=== PATIENT | male | born 1950 | race Caucasian/White ===

== ENCOUNTER → 2018-10-19 11:11 | Outpatient (CLI) | payer BC, SELFPAY ==
[2018-10-19 12:33] LABS: BUN Creatinine Ratio 21.1 (6-22); Blood Urea Nitrogen 19 mg/dL (9-20); Estimated Glomerular Filt Rate > 60.0 mL/min (>60)
== END ==
PROVIDERS: Visit Provider Ophthalmology
DX: G90.2 Horner's syndrome (principal)
CPT/HCPCS: 36415; 82565; 84520

== ENCOUNTER → 2018-10-28 07:37 | Outpatient (CLI) | payer BC, SELFPAY ==
--- NOTE | 2018-10-28 | DI.MRI.S_ITS ---
PROCEDURE: MR HEAD/BRAIN WO/W CON INDICATIONS: RONNIE'S SYNDROME TECHNIQUE: Noncontrast axial T1 spin echo, axial T2 fast spin echo, sagittal and axial FLAIR, coronal T2 fast spin echo, axial gradient echo, axial diffusion and ADC through the brain. After the administration of contrast, axial and coronal T1 spin echo with fat saturation through the brain. COMPARISON: None. FINDINGS: Image quality: Excellent. CSF spaces: Basal cisterns are patent. No extra-axial fluid collections. Ventricles are normal in size and shape. Brain: The hypothalamic region appears grossly unremarkable without abnormal enhancement. Trigeminal nerves appear grossly unremarkable, although on the right, there is a small vessel which courses adjacent to the right trigeminal nerve root just prior to entering Meckel's cave. This is an asymmetric appearance, although the actual clinical significance is unknown; recommend correlation to exam findings. The intracranial ICA flow-voids appear unremarkable. Grossly unremarkable appearance of the cavernous sinuses No midline shift. No intracranial bleeds or masses. No abnormal intracranial enhancement. There is cerebral volume loss for age. There is periventricular white matter chronic small vessel ischemic change. The brainstem appears normal. Diffusion-weighted images demonstrate no acute ischemic insults. No chronic ischemic insults. Normal intravascular flow voids are present. Skull and face: Calvarial marrow is normal in signal. Orbits appear normal. There are multiple right posterior scalp lesions measuring up to 1.6 x 1.0 cm on image 17 series 8 and up to 2.2 x 1.1 cm on image 18 series 8. These are heterogeneous in signal and relatively low in signal on T2-weighted images and demonstrate no definite enhancement. Additional large left frontal scalp lesion image 16 series 5, image 25 series 8. Sinuses: Sinuses and mastoids appear clear. IMPRESSION: Numerous heterogeneous skin and subcutaneous scalp mass lesions with minimal if any enhancement. Please correlate clinically to exclude neoplastic possibilities No intracranial mass lesion or abnormal enhancement identified. Small vessel coursing adjacent to the right cranial nerve V root which is asymmetric compared to the contralateral side although the actual clinical significance is unknown. Please correlate with exam findings. Dictated by: Mak Singleton M.D. on 10/28/2018 at 9:34 Approved by: Mak Singleton M.D. on 10/28/2018 at 10:02
--- NOTE | 2018-10-28 | DI.MRI.S_ITS ---
PROCEDURE: MR ANGIO NECK W CON INDICATIONS: RONNIE'S SYNDROME TECHNIQUE: Axial and sagittal TruFISP through the neck. Coronal dynamic MRA after the administration of contrast in the arterial and venous phases, with rotating 3-dimensional maximum intensity projection (MIP) reformats constructed from subtraction images. COMPARISON: [facility], MR, MR HEAD/BRAIN WO/W CON, 10/28/2018, 8:24. FINDINGS: Image quality: Excellent. Carotid system: Incidental note is made of a common origin of the right brachiocephalic artery and the left common carotid artery (bovine type arch). This is considered to be a developmental variant of no clinical consequence. The origins of the common carotid arteries appear normal. The calibers and courses of the common carotid arteries are likewise normal. The carotid bifurcations appear normal bilaterally. The internal carotid arteries are widely patent up to the [place]. Posterior circulation: The origins of the vertebral arteries are unremarkable. The more superior portions of the vertebral arteries demonstrate normal course and caliber. The right vertebral artery is dominant the left. Vertebral arteries join to form a normal appearing basilar artery. Miscellaneous: Subclavian arteries are patent throughout. Pre-contrast images through the neck demonstrate no soft tissue abnormalities. IMPRESSION: No significant abnormality of the arteries of the neck The right vertebral artery is dominant to the left, which is considered to be a normal developmental variant. Incidental note is made of: Bovine type aortic branching pattern Any quantitative measurements of stenosis were performed using NASCET criteria. Dictated by: Alex Hopper M.D. on 10/28/2018 at 9:20 Approved by: Alex Hopper M.D. on 10/28/2018 at 9:23
== END ==
PROVIDERS: PCP Family Medicine Geriatric Medicine; Visit Provider Ophthalmology
DX: G90.2 Horner's syndrome (principal); L98.9 Disorder of the skin and subcutaneous tissue, unspecified
CPT/HCPCS: 70548; 70553